=== PATIENT | male | born 1945 | race Caucasian/White ===

== ENCOUNTER 2019-04-18 06:01 | Inpatient (IN) ==
--- NOTE | 2019-04-14 09:23 | PAT Medication Instructions ---
Medication Instructions Date of Service April 14, 2019 Home Medications amlodipine 5 mg PO DAILY ciprofloxacin HCl 250 mg PO Q12H furosemide 40 mg PO QAM glipizide 10 mg PO QAM pravastatin 20 mg PO HS sulfamethoxazole-trimethoprim [Bactrim DS] 1 tab PO Q12H tamsulosin 0.4 mg PO DAILY Continue as directed ciprofloxacin HCl 250 mg PO Q12H sulfamethoxazole-trimethoprim [Bactrim DS] 1 tab PO Q12H DO NOT take the morning of surgery furosemide 40 mg PO QAM glipizide 10 mg PO QAM Take morning of surgery With a small sip of water, OTHERWISE NOTHING TO EAT OR DRINK AFTER MIDNIGHT: amlodipine 5 mg PO DAILY tamsulosin 0.4 mg PO DAILY Take evening before surgery pravastatin 20 mg PO HS Other Notes If you have any questions please call us at [phone] or [phone] or [phone] or [phone]
--- NOTE | 2019-04-14 09:31 | Anesthesiology Consultation ---
Date of Service April 14, 2019 Assessment & Plan (1) Encounter for pre-operative examination: Patient on dialysis MWF. Per surgeon's note, plan is to perform dialysis after surgery on Thursday (surgeon's office arranging). Case discussed with Dr. Espinoza. Surgery clearly urgent due to necrosis of penile tissue. BMP will be drawn AM DOS, and case will proceed as long as electrolytes are reasonable. SEVERE ANEMIA ON PRE-OP LABS. SURGEON MADE AWARE. SURGEON ORDERING TRANSFUSION OF 2 UNITS PRBC FOR AM DOS. OR AND BLOOD BANK MADE AWARE. CHECK BSG AM DOS Chart Review Chart Review: Acceptable Risk for Surgery and Patient seen in Pre Admission Testing Teaching & Discussion Instructed NPO after midnight before surgery, except medications with 15 cc of water. Medication instructions provided according to the PAT guidelines. History Surgery Operation Date: 04/18/19 11:20 Proposed Procedures p Radical Penectomy, Cystoscopy, Perineal Urethrotomy - Jamir Nicholson II, DO Height/Weight Height: 5 ft 7 in Weight: 88.904 kg Allergies Allergy/AdvReac Type Severity Reaction Status Date / Time No Known Allergies Allergy Verified 04/14/19 08:35 Medications Home Medications Medication Instructions Recorded Confirmed Last Taken amlodipine 5 mg PO DAILY 04/14/19 04/14/19 Unknown aspirin [Aspirin Low Dose] 81 mg PO DAILY 04/14/19 04/14/19 Unknown calcium acetate 1,334 mg PO AC 04/14/19 04/14/19 Unknown cholecalciferol (vitamin D3) 2,000 unit PO DAILY 04/14/19 04/14/19 Unknown [Vitamin D3] ciprofloxacin HCl 250 mg PO Q12H 04/14/19 04/14/19 Unknown furosemide 40 mg PO QAM 04/14/19 04/14/19 Unknown glipizide 10 mg PO QAM 04/14/19 04/14/19 Unknown hydroxyzine HCl 10 mg PO Q6H PRN 04/14/19 04/14/19 Unknown pravastatin 20 mg PO HS 04/14/19 04/14/19 Unknown sulfamethoxazole-trimethoprim 1 tab PO Q12H 04/14/19 04/14/19 Unknown [Bactrim DS] tamsulosin 0.4 mg PO DAILY 04/14/19 04/14/19 Unknown vitamin B hzsfyb-P-EI-zinc cit 1 tab PO DAILY 04/14/19 04/14/19 Unknown [Dialyvite 800 with Zinc 15] Past Medical History Medical History AV fistula left upper arm Cancer penile, necrotic. Chronic kidney disease Dr John Ramos ([place], [place]) Diabetes mellitus, type 2 A1C 6.3% 04/14/19 Hearing deficit Hemodialysis patient [facility] -- Dr John Ramos. ; MWF. Hyperlipidemia Hypertension Indwelling Hunter catheter present Leukocytosis Pt currently on 2 antibiotics prescribed by surgeon. Exercise / Class Metabolic Activity II 4-5 Yardwork/Stairs/Walk up hill (Denies CP or SOB with 1 FOS) Past Family History Family History Mother Family history of diabetes mellitus Past Surgical History Surgical History History of cardiac cath 2011 History of colonoscopy History of coronary artery bypass graft x3 vessels @ [facility] 2011 History of tonsillectomy Hx of LASIK S/P arteriovenous (AV) fistula creation left upper arm Past Anesthesia History No Hx of Anesthesia Complications and No Family Hx of Anesthesia Complications History of PONV No Hx of PONV and No Hx of Motion Sickness Social History Smoking Status: Never smoker tobacco type: smokeless tobacco Do You Dip or Chew Tobacco: Yes (1 CAN/3 WEEKS) Hx Alcohol Use: Yes Alcohol type: beer and hard liquor alcohol intake frequency: a few times a month Hx Substance Use: No substance use type: does not use Review of Systems Pt denies any recent chest pain, shortness of breath, palpitations, cough, fever or URI. Physical Exam Vital Signs BP: 119/61 P: 67bpm SPO2: 93% RA T: 98 F R: 22 ENMT Mouth: + poor dentition, + chipped teeth (MANY) and + small oral opening (VERY); no dental restorations and no loose teeth Mallampati Class: IV Neck + limited neck extension Respiratory normal respiratory effort Auscultation: lungs clear to auscultation bilaterally Cardiovascular Rate/Rhythm: regular rate and regular rhythm Heart Sounds: + murmur (II/ SYSTOLIC RSB) Extremities: no edema Testing Laboratory Results 04/14/19 09:50 04/14/19 09:50 Hemoglobin A1c 6.3 % (4.5-5.6) H 04/14/19 09:50 Urine Color Yellow 04/14/19 Unknown Urine Appearance Turbid (Clear) A 04/14/19 Unknown Urine pH >= 9.0 (4.5-7.5) H 04/14/19 Unknown Ur Specific [place] 1.014 (1.000-1.030) 04/14/19 Unknown Urine Protein 3+ (Negative) H 04/14/19 Unknown Urine Glucose (UA) Trace (Negative) H 04/14/19 Unknown Urine Ketones Negative (Negative) 04/14/19 Unknown Urine Nitrite Negative (Negative) 04/14/19 Unknown Ur Leukocyte Esterase 3+ (Negative) H 04/14/19 Unknown Urine WBC (Auto) >30 /hpf (0-5) H 04/14/19 Unknown Urine RBC (Auto) 10-30 /hpf (0-4) H 04/14/19 Unknown U Hyaline Cast (Auto) 1-5 /lpf (0-5) 04/14/19 Unknown U Epithel Cells (Auto) 10-20 /lpf (0-5) H 04/14/19 Unknown Urine Bacteria (Auto) Negative (Negative) 04/14/19 Unknown Blood Type O Negative 04/14/19 09:50 Antibody Screen NEGATIVE 04/14/19 09:50 *Surgeon flagged re: Hgb and possible need for transfusion, and flagged re: elevated WBC count. BUN/Cr consistent with ESRD (pt is on HD) Electrocardiogram Date: 04/14/19 Findings: + NSR @ (68) ST and T wave abnormality, consider lateral ischemia. Prolonged QT. *flattened ST segment in V3-V6, isolated slight T wave inversion in lead I. Chest X-Ray Date: 04/13/19 FINDINGS: Cardiac silhouette is enlarged. Prior median sternotomy. No pneumothorax, large pleural effusion or overt pulmonary edema. Interstitial coarsening of the lung bases with mild subsegmental bibasilar atelectasis. Degenerative changes of the shoulders and spine. Vascular stent graft noted about the left upper extremity. IMPRESSION: Cardiomegaly without acute process.
--- NOTE | 2019-04-14 10:34 | XRay Report ---
XR chest Pre-admission PA/Lat HISTORY: 73 years-old Male pat preoperative exam without acute chest complaints COMPARISON: None available TECHNIQUE: PA and lateral views of the chest FINDINGS: Cardiac silhouette is enlarged. Prior median sternotomy. No pneumothorax, large pleural effusion or o vert pulmonary edema. Interstitial coarsening of the lung bases with mild subsegmental bibasilar atel ectasis. Degenerative changes of the shoulders and spine. Vascular stent graft noted about the left u pper extremity. IMPRESSION: Cardiomegaly without acute process. The above report was generated using voice recognition software. It may contain grammatical, syntax o r spelling errors. Electronically signed by: Manuel Muir M.D. 04/14/2019 10:33 AM
[2019-04-14 11:31] LABS: Appearance Urine Turbid (Clear); Bacteria Urine Automated Negative (Negative); Bilirubin Urine Negative (Negative); Blood Urine 2+ (Negative); Color Urine Yellow; Glucose Urine UA Trace (Negative); Ketones Urine Negative (Negative); Leukocyte Esterase Urine 3+ (Negative); Nitrite Urine Negative (Negative); Specific Gravity Urine 1.014 (1.000-1.030); Urobilinogen Urine Negative (Negative); WBC Urine Automated >30 /hpf (0-5); pH Urine >= 9.0 (4.5-7.5)
[2019-04-14 11:34] LABS: BUN Creatinine Ratio 5.7 (10-20); Calcium 8.6 mg/dl (8.5-10.1); Creatinine Clr Calc Pharmacy 16.6 ml/min; Est GFR (African American) 15.2; Est GFR (Non-African American) 13.1; Potassium 3.7 mmol/L (3.5-5.1)
[2019-04-14 11:42] LABS: Protein Urine 3+ (Negative)
[2019-04-14 11:48] LABS: Hemoglobin 7.4 g/dL (14.0-18.0); Mean Corpuscular Hgb Conc 29.6 g/dL (32-36); Mean Corpuscular Volume 88.3 fL (80-100); Mean Platelet Volume 8.6 fL (7.4-10.4); Platelet Count 301 K/uL (130-400); RDW Coefficient of Variation 18.3 % (11.5-14.5); RDW Standard Deviation 59.8 fL (36.4-46.3); Red Blood Count 2.83 M/uL (4.7-6.1); White Blood Count 25.76 K/uL (4.8-10.8)
[2019-04-14 11:49] LABS: Basophils # (auto) 0.04 K/uL (0-0.2); Basophils % (auto) 0.2 %; Eosinophils # (auto) 0.25 K/uL (0-0.5); Hypochromasia Present; Immature Granulocytes # (auto) 0.13 K/uL (0.00-0.02); Immature Granulocytes % (auto) 0.5 %; Lymphocytes # (auto) 2.99 K/uL (1.2-3.4); Lymphocytes % (auto) 11.6 %; Monocytes # (auto) 1.17 K/uL (0.11-0.59); Monocytes % (auto) 4.5 %; Neutrophils # (auto) 21.18 K/uL (1.4-6.5); Neutrophils % (auto) 82.2 %
[2019-04-14 12:44] LABS: Estimated Average Glucose 134 mg/dl; Hemoglobin A1C 6.3 % (4.5-5.6)
[~2019-04-18 06:01] MED LIST: CEFAZOLIN 2000MG 2,000 MG/15 ML SYR IV SCH; SODIUM CHLORIDE 0.9% 1000ML IV SCH; SODIUM CHLORIDE 0.9% 250 ML IV PRN
--- NOTE | 2019-04-18 06:59 | History & Physical Bridge Note ---
Date of Service April 18, 2019 History & Physical Bridge Note I have examined the patient, reviewed the History & Physical and in the interval since the performance of the History & Physical I have noted the following changes of clinical significance: no changes noted
[2019-04-18 07:04] LABS: BUN Creatinine Ratio 6.1 (10-20); Calcium 9.2 mg/dl (8.5-10.1); Creatinine Clr Calc Pharmacy 12.1 ml/min; Est GFR (African American) 10.2; Est GFR (Non-African American) 8.8; Potassium 3.6 mmol/L (3.5-5.1)
[2019-04-18] MEDS ORDERED: HYDROmorphone INJ 1 MG/ML SYRINGE IV PRN (10:26)
[2019-04-18] MEDS ORDERED: ePHEDrine sulfate 50 MG/ML AMP IV PRN (10:26)
[2019-04-18] MEDS ORDERED: ATROPINE SULFATE 0.1 MG/ML 10ML SYR IV PRN (10:26)
[2019-04-18] MEDS ORDERED: DEXAMETHASONE SOD INJ 4 MG/ML VIAL ONE (10:33)
[2019-04-18] MEDS ORDERED: PROPOFOL IV EMULSION 10 MG/ML 20 ML VIAL IV ONE (10:33)
[2019-04-18] MEDS ORDERED: NEOSTIGMINE METHYLSULFATE 5 MG/5 ML SYR ONE (10:33)
[2019-04-18] MEDS ORDERED: GLYCOPYRROLATE 0.2 MG/ML VIAL ONE (10:33)
[2019-04-18] MEDS ORDERED: MIDAZOLAM HCL 1 MG/ML 2ML VIAL ONE (10:33)
[2019-04-18] MEDS ORDERED: ONDANSETRON INJ 2 MG/ML 2 ML VIAL ONE ×2 (10:33→14:14)
[2019-04-18] MEDS ORDERED: LIDOCAINE HCL 2% 2 ML VIAL/AMP(20MG/ML) INFIL ONE (10:33)
[2019-04-18] MEDS ORDERED: fentaNYL citrate 100 MCG/2 ML VIAL ONE ×3 (10:34→12:13)
[2019-04-18] MEDS ORDERED: BACITRACIN INJ 50,000 UNIT VIAL ONE (11:22)
[2019-04-18] MEDS ORDERED: BUPIVACAINE 0.5 % 5 MG/1 ML MPF 30ML VIAL ONE (11:22)
[2019-04-18] MEDS ORDERED: BACITRACIN OINT 15 GM TUBE ONE (11:22)
[2019-04-18] MEDS ORDERED: SODIUM CHLORIDE 0.9% 1000ML 1,000 ML IV PRN (11:42)
--- NOTE | 2019-04-18 11:42 | Nephrology Consultation ---
Date of Consultation April 18, 2019 Assessment & Plan (1) ESRD (end stage renal disease) on dialysis: -- Will provide heparin free HD today. Orders have been entered into EMR and HD RN notified (2) Anemia: -- Patient transfused one unit PRBC prior to surgery today -- Will provide JOSH w/ HD -- Will order CBC for am (3) Penile malignant neoplasm: -- Penectomy as per Urology History of Present Illness Reason for Consultation: ESRD Attending Physician: Jamir Nicholson, II, DO History of Present Illness Mr. Mahoney is a 73 year old white male who is seen at the request of Dr. Nicholson to provide inpatient HD. Medical records in the EMR were reviewed today and are summarized as follows: Mr. Mahoney's medical history is significant for AODM, HTN, hypercholesterolemia, GERD, BPH and ASCVD. He has been on IHD since 2016. He dialyzes MWF at [facility] [place] in [place] (3hr 15min 2K 2Ca HCO3 37 Qb 450cc/min EDW 89kg). His primary Track Vehicle Repairer is Dr. John Ramos. Mr. Mahoney was recently diagnosed w/ penile cancer. He will undergo elective penectomy today. Nephrology consultation has been requested to provide inpatient HD. Allergies Allergy/AdvReac Type Severity Reaction Status Date / Time No Known Allergies Allergy Verified 04/18/19 06:41 Home Medications Home Medications Medication Instructions Recorded Confirmed Type amlodipine 5 mg PO DAILY 04/14/19 04/18/19 History aspirin [Aspirin Low Dose] 81 mg PO DAILY 04/14/19 04/18/19 History calcium acetate 1,334 mg PO AC 04/14/19 04/18/19 History cholecalciferol (vitamin D3) 2,000 unit PO DAILY 04/14/19 04/18/19 History [Vitamin D3] ciprofloxacin HCl 250 mg PO Q12H 04/14/19 04/18/19 History furosemide 40 mg PO QAM 04/14/19 04/18/19 History glipizide 10 mg PO QAM 04/14/19 04/18/19 History hydroxyzine HCl 10 mg PO Q6H PRN 04/14/19 04/18/19 History pravastatin 20 mg PO HS 04/14/19 04/18/19 History sulfamethoxazole-trimethoprim 1 tab PO Q12H 04/14/19 04/18/19 History [Bactrim DS] tamsulosin 0.4 mg PO DAILY 04/14/19 04/18/19 History vitamin B rwaznh-A-PP-zinc cit 1 tab PO DAILY 04/14/19 04/18/19 History [Dialyvite 800 with Zinc 15] Patient History Medical History AV fistula left upper arm Cancer penile, necrotic. Chronic kidney disease Dr John Ramos ([place], [place]) Diabetes mellitus, type 2 A1C 6.3% 04/14/19 Hearing deficit Hemodialysis patient [facility] -- Dr John Ramos. ; MWF. Hyperlipidemia Hypertension Indwelling Hunter catheter present Leukocytosis Pt currently on 2 antibiotics prescribed by surgeon. Surgical History History of cardiac cath 2011 History of colonoscopy History of coronary artery bypass graft x3 vessels @ [facility] 2011 History of tonsillectomy Hx of LASIK S/P arteriovenous (AV) fistula creation left upper arm Family History Mother Family history of diabetes mellitus Social History Preferred Language: Nepalese Communication Ability: Effective Insurance Coder Required: No Beliefs That Will Affect Care: None Current Living Situation: Alone Other Information That Helps Us Care for You: No Feels Safe at Home: Yes Safety Concerns: Feels Safe At This Time Smoking Status: Never smoker Tobacco Type: smokeless tobacco Do You Dip or Chew Tobacco: Yes (1 CAN/3 WEEKS) Second Hand Exposure: No Tobacco Cessation Education Requested by Patient: No Hx Alcohol Use: Yes Alcohol type: beer and hard liquor Hx Substance Use: No Review of Systems Constitutional: no fever Respiratory: no dyspnea Cardiovascular: no chest pain Gastrointestinal: no abdominal pain, no constipation and no diarrhea/loose stools Genitourinary: no dysuria and no hematuria Physical Exam Constitutional: + frail appearing Eyes: PERRL Neck: trachea midline, no thyromegaly Respiratory: normal respiratory effort, lungs clear to auscultation Cardiovascular: Rate/Rhythm: regular rate and regular rhythm Gastrointestinal (Abdomen): normal bowel sounds, soft, nontender, no hepatosplenomegaly Skin: no rashes, warm and dry (no edema) Neurologic: not confused Results & Data Vital Signs (Past 12 Hours) Vital Signs Temp Pulse Pulse Resp BP BP Pulse Ox 04/18/19 11:27 37.1 C 77 20 149/73 H 96 04/18/19 11:01 36.8 C 80 20 122/76 96 04/18/19 10:46 37 C 76 20 122/67 97 04/18/19 10:26 36.7 C 74 20 128/65 97 04/18/19 10:25 36.7 C 80 20 128/65 97 04/18/19 10:01 37 C 78 18 128/72 96 04/18/19 09:19 36.5 C 81 20 134/71 90 04/18/19 09:00 36.5 C 77 20 94 04/18/19 08:30 36.8 C 77 20 128/91 95 04/18/19 08:16 36.9 C 80 20 118/81 96 04/18/19 08:00 36.8 C 78 20 132/74 91 04/18/19 06:47 37 C 71 18 143/69 H 93 Laboratory Results Laboratory Tests 04/14/19 04/14/19 04/18/19 09:50 Unknown 06:26 WBC 25.76 H Hgb 7.4 L Hct 25.0 L Plt Count 301 Sodium 135 L Potassium 3.6 Chloride 97 L Carbon Dioxide 29 BUN 36 H Creatinine 5.82 H* Glucose 95 Urine Color Yellow Urine Appearance Turbid A Urine pH >= 9.0 H Ur Specific [place] 1.014 Urine Protein 3+ H Urine Glucose (UA) Trace H Urine Ketones Negative Urine Blood 2+ H Urine Nitrite Negative Urine WBC (Auto) >30 H Urine RBC (Auto) 10-30 H U Hyaline Cast (Auto) 1-5
[2019-04-18] MEDS ORDERED: EPOETIN ALFA 10,000 UNITS/ML VIAL IV ONE (12:30)
[2019-04-18] MEDS ORDERED: ePHEDrine sulfate 50 MG/ML SYR ONE (12:43)
--- NOTE | 2019-04-18 15:06 | Post Operative Brief Note ---
Immediate Post Op Note v1 Date of Surgery April 18, 2019 Pre & Post Diagnosis Operation Date: 04/18/19 11:20 Pre-Op Diagnosis: Penile Cancer Post-Op Diagnosis: Penile Cancer Procedure Operation Date: 04/18/19 11:20 Actual Procedures p Radical Penectomy, and Perineal Urethrotomy with urethral repair(Not Applicable) - Jamir Nicholson II, DO Surgeon Jamir Nicholson II, DO Appeals Nurse Terence Krueger MD and ZARINA López Estimated Blood Loss 20 Findings Consistent with Post-Op Diagnosis Necrotic penile cancer to base with significant tumor palpated down the proximal corporal bodies. Specimens Radical Penectomy Frozen urethral margin Drains [place] Drain Anesthesia Type General Complications none Disposition Disposition: Recovery Room Overlapping Procedure I was present for: the critical portions of procedure. I was immediately available: during the entire case. Back up surgeon: used during listed procedure.
--- NOTE | 2019-04-18 15:35 | Operative Report ---
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 Palpable tumor down into proximal corporal bodies. Specimens 1. Total Penectomy 2. Frozen distal urethral margin Drains [place] drain in suprapubic region 16 Fr Silicon العلي at perineal urethrostomy Anesthesia Type General Complications none Disposition Disposition: Recovery Room Indications Patient with biopsy proven squamous cell cancer of the penis with necrosis. Risks and benefits discussed at length. Description of Procedure Patient was consented, brought to the OR, and placed in the dorsal lithotomy position under general anesthesia. She was prepped and draped in the standard sterile fashion and a time out was completed. With the time out completed, the skin was marked to have a wide excision with approx 2 cm of margin. This was most difficult at the base ventrally where the fungated mass had ulcerated down to the scrotal junction. The markings were mad to plan the incision to include some of the scrotal skin for good margin. At this point, The skin over top the pubic bone and around the penis was injected with local anesthetic. Throughout the entire procedure copious irrigation was utilized. The skin was incised with a scalpel. Electrocautery was used to open the the subcutaneous tissues. This was taken down past dartos fascia. With some mobilization, a glove was placed over the mass to help prevent tumor spillage. Prior to opening the skin, the mass was not mobile or exposed enough to place the glove. The superior/dorsal region was dissected down towards the pubic bone. The suspensory ligament was taken with electrocautery. No bleeding or areas of concern. The dorsal vasculature was then ligated with 2-0 silk ties after they were isolated. The dissection was carried down to the region of the posterior pubic bone edge. Circumferentially, dissection was taken freeing the penis from surrounding tissues. The urethra was isolated. Due to location of the ulcerated lesion and concern on palpation due to firmness of tissues around the urethra, a segment of urethra was freed and isolated by a vessel loop. The distal end of the urethra was taken as far as the tissues appeared healthy. The urethra was transected and a distal urethral stump margin was sent for frozen pathologic analysis. Mild and Moderate dysplasia was found in this tissue. No malignancy was discovered. With the short length of amputated urethra and due to patient's habitus, as well as the lack of malignant tissues in the urethra, it was decide to maintain the remaining urethral tissues for creation of the perineal urethrostomy. This was dissected away from the corporal bodies and freed and mobilized. It did appear to reach the perineum where the planned ostomy was going to be created. The corporal bodies were then further dissected and isolated. The tissues appeared more normal without palpable mass or other concerning features toward the base near their proximal end. A 2 cm section of normal feeling tissue was able to be achieved. Sam clamps were placed accross the corporal bodies. These were then transected and the penis fully removed and sent for pathologic analysis after remaining attachments were freed. The corpus cavernosum was then closed by suturing the tunica albuginea with 2-0 and 1-0 PDS suture with horizontal mattress stitches. This closed the tissues complete. The sam clamps were removed and no bleeding was appreciated. 3-0 Vicryl suture was used to ligate some small vessels of the dorsal aspect. The urethral stump was further mobilized to allow placement down to the planned perineum region so a tension free placement could be achieved. At this point, a small approx 2mm urethrotomy was discovered at the dorsal aspect of the urethra as it curved up. This was closed with interrupted 4-0 PDS suture. A 3-0 vicryl suture was used to close tissues over the closure to make a second layer of closure. This was inspected and no issues or bleeding was discovered. Attention was then taken to the perineal urethrostomy creation. An incision was made along the median raphe. This was then dissected through the tissues. A right angle was used to enter, and a mila was used to gently grasp the urethra and place it into the perineal incision. Care was taken to make sure no angulation or other issues developed. The urethra was spatulated at the dorsal aspect. The edges were then sutured with interrupted 3-0 vicryl sutures to create a neomeatus for the urethrostomy. Care was taken to create a wide spatulization of the urethra, tension free, and without angulation. A 16 Fr العلي was placed. All bleeding had been controlled by cautery where necessary. The dartos and subcutaneous tissues were closed with running 2-0 Vicryl suture. This was repeated for the pubic incision. Multiple layers were closed to reduce open space created during dissection. A [place] drain was placed to allow kumar inage. It was secured with a 3-0 nylon suture. The skin was then closed using 2-0 horizontal mattress sutures. Due to the needed resection of scrotal skin, the final closure had an inverted Y configuration. The perineum was closed with 2-0 inturrupted suture. Antibiotic ointment and vaseline gauze were placed around the العلي and on the ostomy. Scrotal support was achieved by a jock strap and fluff bandaging support which was placed after the patient was washed and cleaned. Copious antibiotic irrigation had been used throughout the procedure. Prior to closure final inspection of the area found no bleeding or areas of concern. No tumor or other concerning features. Patient did not have palpable lymph nodes in any area and no concerning lymph nodes were discovered on preoperative imaging. Esthela SRINIVASAN was involved in the entire procedure and was critical for closure, dissection, and retraction. Terence Krueger MD assisted during the major portions of the case including dissection and excision of the penis as well as creation of the ostomy. The patient was cleaned. The drapes removed. All counts were correct x 2 prior to full closure. The patient was aroused from anesthesia and transferred to the pacu in stable condition having tolerated the procedure well without complications. I was present and participated in the entire procedure with assistance as listed above. I attest to the content of the Intraoperative Record and any orders documented therein. Any exceptions are noted below.
[2019-04-18] MEDS ORDERED: PHARMACY GLYCEMIC MGMT CONSULT PRN (15:54)
--- NOTE | 2019-04-18 15:59 | Pharmacy Report ---
Glycemic Control Consultation - Date of Service April 18, 2019 - Scope Scope: Glycemic Pharmacist consulted by Esthela Marshall on 04/18 for glycemic control and to write orders per [facility] inpatient glycemic control protocol - Objective Weight: 90.4 kg Accuchecks BSG (last 24hrs): 04/18/19 04/18/19 04/18/19 06:26 06:49 15:51 Glucose 95 POC Glucose 95 136 H Laboratory Data (last 24hrs): 04/18/19 06:26 Potassium 3.6 Carbon Dioxide 29 Anion Gap 8.0 Creatinine 5.82 H* Est Cr Clr Drug Dosing 12.1 HbA1c: Hemoglobin A1c 6.3 % (4.5-5.6) H 04/14/19 09:50 - Recent Pertinent Medications Outpatient Anti-diabetic Regimen: * glipizide 10 mg Qam * A1c = 6.3 % -not accurate as patient is ESRD on HD Risk Factors for Insulin Resistance: * Steroids: none documented * Recent Surgery: pod 0 - Assessment & Plan Assessment & Plan: ASSESSMENT: * 73 year old now s/p penectomy today. PMHx significant for htn, hld, GERD, BPH, penile cancer * Patient also type 2 diabetic - maintained only on oral agent at home; will utilize novolog SSI postop PLAN FOR INPATIENT GLYCEMIC CONTROL: * Holding outpatient oral diabetes medications * Basal insulin - hold (no steroid received in OR) * Bolus insulin * NovoLog per scale ACHS or Q6hrs while NPO * Goal Range: Low 120 mg/dL - High 160 mg/dL * Correction Factor: 25 mg/dL/unit * Nutritional / Prandial insulin per carb ratio of 1 unit per 9 grams CHO consumed * Please note that the plan above was derived based on current level of insulin resistance and hospital stress. These recommendations are appropriate for inpatient admission only. Plan of care upon discharge will need to be reassessed to avoid potential outpatient hypo/hyperglycemia. Thank you.
[2019-04-18] MEDS ORDERED: GLUCAGON FOR INJ 1 MG VIAL IM PRN (16:00)
[2019-04-18] MEDS ORDERED: GLUCOSE 40% GEL 15 GM TUBE PO PRN (16:00)
[2019-04-18] MEDS ORDERED: CARBOHYDRATES FOR HYPOGLYCEMIA PO PRN (16:00)
[2019-04-18] MEDS ORDERED: GLUCOSE 10 TABS/TUBE PO PRN (16:00)
[2019-04-18] MEDS ORDERED: DEXTROSE 50% 50 ML SYRINGE IV PRN (16:00)
[2019-04-18] MEDS ORDERED: OXYCODONE HCL IR 5 MG TAB (IMMEDIATE RELEASE) PO PRN ×2 (16:31)
[2019-04-18] MEDS ORDERED: ACETAMINOPHEN 1,000 MG/100 ML VIAL IV PRN (16:31)
[2019-04-18] MEDS ORDERED: ONDANSETRON INJ 2 MG/ML 2 ML VIAL IV PRN (16:31)
[2019-04-18] MEDS ORDERED: MoRPHine SULFATE 4 MG/ML 1 ML CARP\\VIAL IV PRN (16:31)
[2019-04-18 17:08] LABS: Hematocrit (blood only) 29.5 % (42-52); Hemoglobin 9.1 g/dL (14.0-18.0); Mean Corpuscular Volume 86.3 fL (80-100); Mean Platelet Volume 8.7 fL (7.4-10.4); Platelet Count 287 K/uL (130-400); RDW Coefficient of Variation 17.4 % (11.5-14.5); RDW Standard Deviation 53.9 fL (36.4-46.3); Red Blood Count 3.42 M/uL (4.7-6.1); White Blood Count 27.31 K/uL (4.8-10.8)
[2019-04-18 17:36] LABS: BUN Creatinine Ratio 6.3 (10-20); Calcium 8.9 mg/dl (8.5-10.1); Creatinine Clr Calc Pharmacy 11.6 ml/min; Est GFR (African American) 9.7; Est GFR (Non-African American) 8.4; Potassium 3.7 mmol/L (3.5-5.1)
[2019-04-18 17:51] LABS: Basophils # (auto) 0.02 K/uL (0-0.2); Basophils % (auto) 0.1 %; Eosinophils # (auto) 0.02 K/uL (0-0.5); Eosinophils % (auto) 0.1 %; Immature Granulocytes # (auto) 0.17 K/uL (0.00-0.02); Immature Granulocytes % (auto) 0.6 %; Lymphocytes # (auto) 0.92 K/uL (1.2-3.4); Lymphocytes % (auto) 3.4 %; Mean Corpuscular Hgb Conc 30.8 g/dL (32-36); Monocytes # (auto) 0.31 K/uL (0.11-0.59); Monocytes % (auto) 1.1 %; Neutrophils # (auto) 25.87 K/uL (1.4-6.5); Neutrophils % (auto) 94.7 %
[2019-04-18] MEDS: LACTATED RINGER'S 1,000 ML IV SCH (17:59)
[2019-04-18] MEDS: INSULIN ASPART 100 UNITS/ML 3 ML PEN SC SCH ×2 (18:39→21:48)
--- NOTE | 2019-04-18 19:40 | Anesthesiology Progress Note ---
Date of Service April 18, 2019 Anesthesia Post Procedure Vital Signs Vital Signs: Temp Pulse Pulse Pulse Resp BP BP 04/18/19 19:22 36.3 C L 76 16 120/61 04/18/19 18:15 36.2 C L 77 16 129/65 04/18/19 17:22 36.3 C L 75 17 126/59 L 04/18/19 16:45 36.2 C L 72 16 120/67 04/18/19 16:02 36.8 C 04/18/19 16:00 68 14 128/65 04/18/19 15:55 68 16 119/64 04/18/19 15:50 68 17 123/61 04/18/19 15:45 68 19 125/72 04/18/19 15:40 68 15 04/18/19 15:35 68 14 131/65 04/18/19 15:30 68 14 131/61 04/18/19 15:26 68 13 135/66 04/18/19 15:25 72 14 04/18/19 15:20 67 23 130/64 04/18/19 15:18 68 14 04/18/19 15:17 36.8 C 68 12 132/63 04/18/19 11:27 37.1 C 77 20 149/73 H 04/18/19 11:01 36.8 C 80 20 122/76 04/18/19 10:46 37 C 76 20 122/67 04/18/19 10:26 36.7 C 74 20 128/65 04/18/19 10:25 36.7 C 80 20 128/65 04/18/19 10:01 37 C 78 18 128/72 04/18/19 09:19 36.5 C 81 20 134/71 04/18/19 09:00 36.5 C 77 20 04/18/19 08:30 36.8 C 77 20 128/91 04/18/19 08:16 36.9 C 80 20 118/81 04/18/19 08:00 36.8 C 78 20 132/74 04/18/19 06:47 37 C 71 18 143/69 H Pulse Ox 04/18/19 19:22 92 04/18/19 18:15 97 04/18/19 17:22 98 04/18/19 16:45 96 04/18/19 16:02 96 04/18/19 16:00 96 04/18/19 15:55 95 04/18/19 15:50 95 04/18/19 15:45 96 04/18/19 15:40 94 04/18/19 15:35 96 04/18/19 15:30 99 04/18/19 15:26 99 04/18/19 15:25 98 04/18/19 15:20 99 04/18/19 15:18 99 04/18/19 15:17 97 04/18/19 11:27 96 04/18/19 11:01 96 04/18/19 10:46 97 04/18/19 10:26 97 04/18/19 10:25 97 04/18/19 10:01 96 04/18/19 09:19 90 04/18/19 09:00 94 04/18/19 08:30 95 04/18/19 08:16 96 04/18/19 08:00 91 04/18/19 06:47 93 Pain Intensity Penis: Pain Intensity: 0 Transfer of Care Handoff Completed per policy Notes Mental Status: alert / awake / arousable Patient Amnestic to Procedure: Yes Nausea / Vomiting: adequately controlled Pain: adequately controlled Airway Patency, RR, SpO2: stable & adequate BP & HR: stable & adequate Hydration State: stable & adequate Anesthetic Complications: no major complications apparent
[2019-04-18] MEDS: CEFAZOLIN 2000MG 2,000 MG/15 ML SYR IV SCH (20:23)
[2019-04-18] MEDS: FAMOTIDINE 20 MG in SYRINGE 3 ML IV SCH (20:23)
[2019-04-18] MEDS: PRAVASTATIN SOD 20 MG TAB PO SCH (20:24)
[2019-04-18] MEDS: DOCUSATE SODIUM 100 MG CAP PO SCH (20:27)
--- NOTE | 2019-04-18 21:26 | History & Physical Report ---
Date of Service April 18, 2019 Assessment & Plan (1) ESRD (end stage renal disease) on dialysis: Ambrosio laws is a 73-year-old male with a past medical history of CKD on hemodialysis, type 2 diabetes mellitus, hypertension, and hyperlipidemia who was admitted to [facility] for a penectomy 2/2 malignant neoplasm. We have been consulted for postoperative medical management. Type 2 diabetes mellitus Hemoglobin A1c 6.3%, on glipizide 10 mg daily PRINCIPAL JAVA DEVELOPER SBG 95 on admit, [id number] postop, 261 at 2133 SSI correction 25, carb ratio 1:9. Glucose checks AC at bedtime Chronic kidney disease on dialysis Bilateral pedal and trace hand edema present on exam Patient feels clinically overloaded. Trace pulmonary crackles. Normal dialysis schedule MW Nephrology consulted for inpatient dialysis Will be receiving dialysis tonight 120 cc UOP Continue Lasix 40 mg every morning Postop hemoglobin 9.1, stable. preop 7.4+1u pRBC Hypertension Continue amlodipine 5 mg p.o. daily Normotensive at time of visit Hyperlipidemia Continue PRINCIPAL JAVA DEVELOPER pravastatin 20 mg p.o. at bedtime Given his history of CABG would benefit from at least a moderate dose/potency statin and beta-silva. Patient is a poor historian and is unable to clarify if he has been on these medications before, or if they were stopped for a particular reason.. Unless contraindicated recommend changing to atorvastatin 40 mg daily and adding low-dose metoprolol as outpatient. 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 Continue pain management per primary team Hunter draining clear yellow urine with some tinged blood Surgical dressing C/D/I. Management per primary team DVT prophylaxis: Heparin 5000 units subcu every [address] CODE STATUS: Full code (2) Anemia: (3) Penile malignant neoplasm: (4) Type 2 diabetes mellitus: (5) Hypertension: (6) Hyperlipidemia: History of Present Illness Chief Complaint: Post op medical management Primary Care Provider: NO PCP Ambrosio reports he feels "okay "at time of exam. He is a poor historian. He reports he is in the hospital because he needed surgery. He is in 4/10 pain in his low groin, but feels this is "okay " He denies any fever, chills, sweats. No difficulty breathing or shortness of breath. No chest pain, chest pressure, palpitations. He feels "puffy "like he needs dialysis. He reports he gets dialysis Thursday for "a long time ". He denies lightheadedness, dizziness, or feeling like he is going to pass out. No other questions or concerns at time of visit. Medications: He is not able to name his prior to admission medications. He reports that he "checked my list "when they came in and they should be accurate SHX: History of CABG x3 in 2012, L AV Fistula formation MedHx: T2DM, HLD, HTN, penile cancer, CKD on HD FHX: DM in his parents, HTN in his parents. Social: Lives alone in [facility] Occasional beer/liquor use Uses dip tobacco Code Status: Full Code. Confirmed with pt. Allergies Allergy/AdvReac Type Severity Reaction Status Date / Time No Known Allergies Allergy Verified 04/18/19 06:41 Home Medications Home Medications Medication Instructions Recorded Confirmed Type amlodipine 5 mg PO DAILY 04/14/19 04/18/19 History aspirin [Aspirin Low Dose] 81 mg PO DAILY 04/14/19 04/18/19 History calcium acetate 1,334 mg PO AC 04/14/19 04/18/19 History cholecalciferol (vitamin D3) 2,000 unit PO DAILY 04/14/19 04/18/19 History [Vitamin D3] ciprofloxacin HCl 250 mg PO Q12H 04/14/19 04/18/19 History furosemide 40 mg PO QAM 04/14/19 04/18/19 History glipizide 10 mg PO QAM 04/14/19 04/18/19 History hydroxyzine HCl 10 mg PO Q6H PRN 04/14/19 04/18/19 History pravastatin 20 mg PO HS 04/14/19 04/18/19 History sulfamethoxazole-trimethoprim 1 tab PO Q12H 04/14/19 04/18/19 History [Bactrim DS] tamsulosin 0.4 mg PO DAILY 04/14/19 04/18/19 History vitamin B [id number] cit 1 tab PO DAILY 04/14/19 04/18/19 History [Dialyvite 800 with Zinc 15] Past Med/Surg History Medical History AV fistula left upper arm Cancer penile, necrotic. Chronic kidney disease Dr John Ramos ([place], [place]) Diabetes mellitus, type 2 A1C 6.3% 04/14/19 Hearing deficit Hemodialysis patient [facility] -- Dr John Ramos. ; MWF. Hyperlipidemia Hypertension Indwelling Hunter catheter present Leukocytosis Pt currently on 2 antibiotics prescribed by surgeon. Surgical History History of cardiac cath 2011 History of colonoscopy History of coronary artery bypass graft x3 vessels @ [facility] 2011 History of tonsillectomy Hx of LASIK S/P arteriovenous (AV) fistula creation left upper arm Family History Mother Family history of diabetes mellitus Social History Preferred Language: Luxembourgish Communication Ability: Effective Ukrainian Folk Arts Instructor Required: No Beliefs That Will Affect Care: None Current Living Situation: Alone Other Information That Helps Us Care for You: No Feels Safe at Home: Yes Safety Concerns: Feels Safe At This Time Smoking Status: Never smoker Tobacco Type: smokeless tobacco Do You Dip or Chew Tobacco: Yes (1 CAN/3 WEEKS) Second Hand Exposure: No Tobacco Cessation Education Requested by Patient: No Hx Alcohol Use: Yes Alcohol type: beer and hard liquor Hx Substance Use: No Review of Systems Review of Systems: Constitutional: Denies fever, chills. Endorses global fatigue for several weeks. Eyes: Denies Double vision, vision change. ENT: Denies sore throat. Denies tooth/mouth pain, endorses poor dentition. Cardiovascular: Denies Chest pain, chest pressure, palpitations Respiratory: Denies shortness of breath, cough, sputum production, difficulty breathing Gastrointestinal: Endorses low abdominal pain as noted in HPI. Denies nausea/vomiting/constipation/diarrhea. Genitourinary: Is not able to feel a sense of urination, catheter in place. Denies pain at catheter site. Musculoskeletal: Endorses global fatigue for several weeks, denies focal weakness/focal joint aches/pain. Integumentary:Denies new rash, lesions, bruising Neurological: Denies headache, numbness, tingling, focal weakness at time of visit Physical Exam Physical Exam: General: A&Ox3. NAD. Cooperative. Somnolent. HEENT: Atraumatic, normocephalic. Poor dentition with several missing teeth. Pulm: Soft crackles in the deep dependent lobes bilaterally. No wheeze estela reciated.. Symmetrical chest rise. No increase work of breathing. No respiratory distress. Cardiac: Soft ii/vi systolic murmer. Regular rate and rhythm. Radial pulses intact and symmetrical. Abdominal: Softly distended, nontender in upper quadrants, mild infraumbilical tenderness. BS present. Extremity: 1+ pitting edema to the mid calf present bilaterally. Trace edema of the hands present. Results & Data Vital Signs (Past 12 Hours) Vital Signs Temp Pulse Pulse Pulse Resp BP BP 04/18/19 19:22 36.3 C L 76 16 120/61 04/18/19 18:15 36.2 C L 77 16 129/65 04/18/19 17:22 36.3 C L 75 17 126/59 L 04/18/19 16:45 36.2 C L 72 16 120/67 04/18/19 16:02 36.8 C 04/18/19 16:00 68 14 128/65 04/18/19 15:55 68 16 119/64 04/18/19 15:50 68 17 123/61 04/18/19 15:45 68 19 125/72 04/18/19 15:40 68 15 04/18/19 15:35 68 14 131/65 04/18/19 15:30 68 14 131/61 04/18/19 15:26 68 13 135/66 04/18/19 15:25 72 14 04/18/19 15:20 67 23 130/64 04/18/19 15:18 68 14 04/18/19 15:17 36.8 C 68 12 132/63 04/18/19 11:27 37.1 C 77 20 149/73 H 04/18/19 11:01 36.8 C 80 20 122/76 04/18/19 10:46 37 C 76 20 122/67 04/18/19 10:26 36.7 C 74 20 128/65 04/18/19 10:25 36.7 C 80 20 128/65 04/18/19 10:01 37 C 78 18 128/72 Pulse Ox 04/18/19 19:22 92 04/18/19 18:15 97 07/15/19 17:22 98 04/18/19 16:45 96 04/18/19 16:02 96 04/18/19 16:00 96 04/18/19 15:55 95 04/18/19 15:50 95 04/18/19 15:45 96 04/18/19 15:40 94 04/18/19 15:35 96 04/18/19 15:30 99 04/18/19 15:26 99 04/18/19 15:25 98 04/18/19 15:20 99 04/18/19 15:18 99 04/18/19 15:17 97 04/18/19 11:27 96 04/18/19 11:01 96 04/18/19 10:46 97 04/18/19 10:26 97 04/18/19 10:25 97 04/18/19 10:01 96 Supervising Physician Co-Signing Physician Notes Pt seen/examined following resident MD Abby Miller. Recommendations reviewed with resident. 73 y/o M Hx ESRD, DM II, HTN, HLD, penile CA admitted for penectomy. The pt is recovering well in the post-op period. Denies CP, SOB, nausea, vomiting, fevers or excessive pain at the surgical site, however, he may be an unreliable historian as he is disoriented. He is scheduled for dialysis this evening. OE AAO x 1 S1,2 +M CTAB NT, ND Bruits auscultated over R arm No CC . + BL edema Disoriented without focal deficits The genital area is bandaged. A cath is in place - urine id mostly yellow P: For Dialysis this ann marie Pt is on Heparin prophylaxis SS for DM Cont Amlodipine, Simvastatin Surgical site management per urology PG Care Time/CCT Total # of Minutes Spent Total Time Spent with Patient: Total time spent is greater than 50% in coordination of care (as documented) at patient's floor/unit and/or counseling patient:
[2019-04-18] MEDS: HEPARIN SOD 5,000 UNIT/0.5 ML VIAL SQ SCH (21:46)
[2019-04-19] MEDS ORDERED: INSULIN ASPART 100 UNITS/ML 3 ML PEN SC SCH
[2019-04-19] MEDS: CEFAZOLIN 2000MG 2,000 MG/15 ML SYR IV SCH ×2 (04:29→13:12)
[2019-04-19] MEDS: LACTATED RINGER'S 1,000 ML IV SCH ×3 (07:52→17:35)
[2019-04-19 07:59] LABS: Basophils # (auto) 0.01 K/uL (0-0.2); Basophils % (auto) 0.1 %; Hemoglobin 8.8 g/dL (14.0-18.0); Immature Granulocytes # (auto) 0.12 K/uL (0.00-0.02); Immature Granulocytes % (auto) 0.6 %; Lymphocytes # (auto) 2.06 K/uL (1.2-3.4); Lymphocytes % (auto) 10.3 %; Mean Corpuscular Hgb Conc 30.3 g/dL (32-36); Mean Corpuscular Volume 87.1 fL (80-100); Mean Platelet Volume 8.6 fL (7.4-10.4); Monocytes # (auto) 0.95 K/uL (0.11-0.59); Monocytes % (auto) 4.8 %; Neutrophils % (auto) 84.2 %; Platelet Count 263 K/uL (130-400); RDW Coefficient of Variation 17.4 % (11.5-14.5); RDW Standard Deviation 54.9 fL (36.4-46.3); Red Blood Count 3.33 M/uL (4.7-6.1); White Blood Count 19.94 K/uL (4.8-10.8)
[2019-04-19 08:35] LABS: BUN Creatinine Ratio 5.4 (10-20); Calcium 8.4 mg/dl (8.5-10.1); Creatinine Clr Calc Pharmacy 18.4 ml/min; Est GFR (African American) 17.4; Potassium 3.7 mmol/L (3.5-5.1)
[2019-04-19] MEDS: INSULIN ASPART 100 UNITS/ML 3 ML PEN SC SCH ×5 (08:58→21:13)
[2019-04-19] MEDS: HEPARIN SOD 5,000 UNIT/0.5 ML VIAL SQ SCH ×2 (08:59→21:10)
[2019-04-19] MEDS: AMLODIPINE BESYLATE 5 MG TAB PO SCH (09:00)
[2019-04-19] MEDS: FAMOTIDINE 20 MG in SYRINGE 3 ML IV SCH ×2 (09:08→21:14)
[2019-04-19] MEDS: DOCUSATE SODIUM 100 MG CAP PO SCH ×2 (09:08→21:10)
--- NOTE | 2019-04-19 10:21 | Nephrology Progress Note ---
Date of Service April 19, 2019 Assessment & Plan (1) ESRD (end stage renal disease) on dialysis: -- Volume status and electrolyte balance are acceptable. No acute indication for HD at this time. -- Will schedule next HD for am (2) Anemia: -- Will provide JOSH w/ HD (3) Penile malignant neoplasm: -- Penectomy 04/18/19 Subjective Mr. Mahoney was seen & examined in his hospital room this morning. He was dialyzed yesterday without complication. This morning he is breathing comfortably on RA flat in bed. He voices no new medical concerns at this time Review of Systems Constitutional: no fever Respiratory: no dyspnea Cardiovascular: no chest pain Gastrointestinal: no abdominal pain and no diarrhea/loose stools Genitourinary: + genital pain (related to surgery) Physical Exam Constitutional: + frail appearing Eyes: PERRL Neck: trachea midline, no thyromegaly Respiratory: normal respiratory effort, lungs clear to auscultation Cardiovascular: Rate/Rhythm: regular rate and regular rhythm Gastrointestinal (Abdomen): normal bowel sounds, soft, nontender, no hepatosplenomegaly Skin: no rashes, warm and dry (no edema) Neurologic: not confused Results & Data Vital Signs (Past 12 Hours) Vital Signs Temp Pulse Pulse Pulse Resp BP BP 04/19/19 07:40 36.6 C 80 18 134/74 04/19/19 03:11 36.3 C L 75 14 137/64 04/19/19 02:10 36.2 C L 83 14 139/71 04/19/19 01:45 36.6 C 70 141/77 H 04/19/19 01:40 70 141/77 H 04/19/19 01:20 68 130/77 04/19/19 01:00 57 L 147/76 H 04/19/19 00:40 68 122/77 04/19/19 00:20 70 130/77 04/19/19 00:00 70 134/74 04/18/19 23:40 71 140/77 04/18/19 23:20 72 132/80 04/18/19 23:00 71 127/78 04/18/19 22:40 71 124/76 Pulse Ox 04/19/19 07:40 94 04/19/19 03:11 94 04/19/19 02:10 96 04/19/19 01:45 04/19/19 01:40 04/19/19 01:20 04/19/19 01:00 04/19/19 00:40 04/19/19 00:20 04/19/19 00:00 04/18/19 23:40 04/18/19 23:20 04/18/19 23:00 04/18/19 22:40 Laboratory Results Laboratory Tests 04/19/19 04/19/19 07:25 07:25 WBC 19.94 H Hgb 8.8 L Hct 29.0 L Plt Count 263 Sodium 133 L Potassium 3.7 Chloride 97 L Carbon Dioxide 28 BUN 20 H Creatinine 3.76 H D Glucose 154 H Calcium 8.4 L
--- NOTE | 2019-04-19 12:18 | Urology Progress Note ---
Date of Service April 19, 2019 Assessment & Plan (1) Penile malignant neoplasm: POD #1 s/p radical penectomy. Patient feeling "okay" Will advance diet. Surgical dressing changed and replaced today - will likely transition to shower tomorrow. Will consult stoma nurse for recommendations of prison urethrostomy management. Maintain Suma until outpatient follow up. Teaching patient about care of his surgical wounds was not successful today, he was not able to verbalize understanding. Patient lives alone with very limited access to family/support/transportation and he voices concerns about transportation to follow up appointment. Will consult case management for consideration of home nursing vs. rehab for short term management, this patient will also need assistance transitioning back to primary urologist in [place]. Will transition to PO antibiotic coverage of Bactrim and Ceftin. Subjective 73 YO male POD #1 s/p radical penectomy. Patient reports feeling "okay" this morning. Requests advance in diet, has been hungry. No nausea/vomiting. Pain well controlled. Hunter not bothersome. Has passed flatus, no BM yet. Hospitalist and Nephrology notes appreciated. Review of Systems Review of Systems: All systems reviewed & are unremarkable except as noted in HPI & below Physical Exam Physical Exam: NAD. Resp effort normal. No JVD. Abd soft/nontender. A&O x self (patient baseline), cooperative, appropriate affect. : suprapubic incision well approximated without evidence of infection; diffuse mild swelling throughout scrotum; urethrostomy appears pink, moist, well approximated, Hunter in place draining clear yellow urine. Dressing changed. Results & Data Vital Signs (Past 12 Hours) Vital Signs Temp Pulse Pulse Pulse Resp BP BP 04/19/19 07:40 36.6 C 80 18 134/74 04/19/19 03:11 36.3 C L 75 14 137/64 04/19/19 02:10 36.2 C L 83 14 139/71 04/19/19 01:45 36.6 C 70 141/77 H 04/19/19 01:40 70 141/77 H 04/19/19 01:20 68 130/77 04/19/19 01:00 57 L 147/76 H 04/19/19 00:40 68 122/77 04/19/19 00:20 70 130/77 Pulse Ox 04/19/19 07:40 94 04/19/19 03:11 94 04/19/19 02:10 96 04/19/19 01:45 04/19/19 01:40 04/19/19 01:20 04/19/19 01:00 04/19/19 00:40 04/19/19 00:20
--- NOTE | 2019-04-19 17:46 | Hospitalist Progress Note ---
Date of Service April 19, 2019 Assessment & Plan (1) ESRD (end stage renal disease) on dialysis: This pt is a 73-year-old male with a past medical history of ESRD on hemodialysis, CAD s/p CABG, type 2 diabetes mellitus, hypertension, and hyperlipidemia who was admitted to [facility] for a penectomy 2/2 malignant neoplasm. We have been consulted for postoperative medical management. ESRD on HD Normal dialysis schedule MWF Nephrology consulted for inpatient dialysis Does make urine, has Hunter in place his lasix is on hold (2) Anemia: Hgb preop 7.4+1u pRBC and now up to 8.8 Has anemia of CKD -follow CBC< transfuse for Hgb < 7.5 -epogen as per Nephro (3) Penile malignant neoplasm: now s/p penectomy Apparent preop scans negative for metastatic disease continue pain control Hunter draining clear yellow urine Surgical dressing C/D/I. Management per primary team -on prophylactic Bactrim and Cefuroxime (4) Type 2 diabetes mellitus: Type 2 diabetes mellitus Hemoglobin A1c 6.3%, on glipizide 10 mg daily CHECK SERVICES CLERK Pharmacy managing (5) Hypertension: BPs controlled Continue amlodipine 5 mg p.o. daily (6) Hyperlipidemia: Continue pravastatin 20 mg p.o. at bedtime Given his history of CABG would benefit from at least a moderate dose/potency statin and beta-silva. Patient is a poor historian and is unable to clarify if he has been on these medications before, or if they were stopped for a particular reason.. Unless contraindicated recommend changing to atorvastatin 40 mg daily and adding low-dose metoprolol as outpatient. Defer to PCP or Cardiology (7) CAD (coronary artery disease), tanana coronary artery: s/p CABG Cardiac cath in 2014 reviewed and had patent grafts, mild LV dysfunction/Chronic systolic CHF, and moderate MR no signs/symptoms of ACS or volume overload-fluid status to be managed with HD ECG with some lateral ST/TW changes, no old ECG for comparison No chest pain -continue statin and consider high intensity as above -would restart ASA when safe from surgical standpoint (8) DVT prophylaxis: Heparin SQ Dispo-medically stable, Pharmacy managing glucose, Nephro managing ESRD/HD Hospitalist Service will sign off at this time Please feel free to reconsult if any acute or new issues arise. Subjective Has pain in his bottom. Denies CP or SOB, no N/V, is tolerating po. Denies abd pain. Is ambulating. Review of Systems Review of Systems: All systems reviewed & are unremarkable except as noted in HPI & below Physical Exam Constitutional: WD/WN, vitals as above Eyes: PERRL, conjunctivae normal, anicteric sclerae ENMT: external ear and nose normal, oropharynx normal Neck: trachea midline, no thyromegaly Respiratory: normal respiratory effort, lungs clear to auscultation Cardiovascular: RRR, no murmur, no edema Gastrointestinal (Abdomen): normal bowel sounds, soft, nontender, no hepatosplenomegaly did not remove dressing Musculoskeletal: Extremities: extremities normal to inspection; no cyanosis and no clubbing Skin: no rashes, warm and dry Neurologic: moves all extremities and awake; no focal motor deficits Psychiatric: A+Ox3, euthymic affect Genitourinary: Hunter in place with clear yellow urine Results & Data Vital Signs (Past 12 Hours) Vital Signs Temp Pulse Resp BP Pulse Ox 04/19/19 15:30 36.5 C 68 16 125/65 98 04/19/19 12:53 36.4 C L 69 18 155/72 H 98 04/19/19 07:40 36.6 C 80 18 134/74 94 Laboratory Results 04/19/19 04/19/19 04/19/19 Range/Units 20:39 17:21 14:02 WBC (4.8-10.8) K/uL RBC (4.7-6.1) M/uL Hgb (14.0-18.0) g/dL Hct (42-52) % MCV (80-100) fL MCH (25-34) pg MCHC (32-36) g/dL RDW Std Deviation (36.4-46.3) fL RDW Coeff of Josue (11.5-14.5) % Plt Count (130-400) K/uL MPV (7.4-10.4) fL Immature Gran % (Auto) % Neut % (Auto) % Lymph % (Auto) % Vermilion % (Auto) % Eos % (Auto) % Baso % (Auto) % Immature Gran # (Auto) (0.00-0.02) K/uL Neut # (Auto) (1.4-6.5) K/uL Lymph # (Auto) (1.2-3.4) K/uL Vermilion # (Auto) (0.11-0.59) K/uL Eos # (Auto) (0-0.5) K/uL Baso # (Auto) (0-0.2) K/uL Sodium (136-145) mmol/L Potassium (3.5-5.1) mmol/L Chloride (98-107) mmol/L Carbon Dioxide (21-32) mmol/L Anion Gap (3-11) BUN (7-18) mg/dl Creatinine (0.6-1.4) mg/dl Est Cr Clr Drug Dosing ml/min Est GFR ( Amer) Est GFR (Non-Af Amer) BUN/Creatinine Ratio (10-20) Glucose (70-99) mg/dl POC Glucose 160 H 172 H 135 H (70-99) Calcium (8.5-10.1) mg/dl 04/19/19 04/19/19 04/19/19 Range/Units 12:25 08:10 07:25 WBC (4.8-10.8) K/uL RBC (4.7-6.1) M/uL Hgb (14.0-18.0) g/dL Hct (42-52) % MCV (80-100) fL MCH (25-34) pg MCHC (32-36) g/dL RDW Std Deviation (36.4-46.3) fL RDW Coeff of Josue (11.5-14.5) % Plt Count (130-400) K/uL MPV (7.4-10.4) fL Immature Gran % (Auto) % Neut % (Auto) % Lymph % (Auto) % Vermilion % (Auto) % Eos % (Auto) % Baso % (Auto) % Immature Gran # (Auto) (0.00-0.02) K/uL Neut # (Auto) (1.4-6.5) K/uL Lymph # (Auto) (1.2-3.4) K/uL Vermilion # (Auto) (0.11-0.59) K/uL Eos # (Auto) (0-0.5) K/uL Baso # (Auto) (0-0.2) K/uL Sodium 133 L (136-145) mmol/L Potassium 3.7 (3.5-5.1) mmol/L Chloride 97 L (98-107) mmol/L Carbon Dioxide 28 (21-32) mmol/L Anion Gap 8.0 (3-11) BUN 20 H (7-18) mg/dl Creatinine 3.76 H D (0.6-1.4) mg/dl Est Cr Clr Drug Dosing 18.4 ml/min Est GFR ( Amer) 17.4 Est GFR (Non-Af Amer) 15.0 BUN/Creatinine Ratio 5.4 L (10-20) Glucose 154 H (70-99) mg/dl POC Glucose 124 H 161 H (70-99) Calcium 8.4 L (8.5-10.1) mg/dl 04/19/19 Range/Units 07:25 WBC 19.94 H (4.8-10.8) K/uL RBC 3.33 L (4.7-6.1) M/uL Hgb 8.8 L (14.0-18.0) g/dL Hct 29.0 L (42-52) % MCV 87.1 (80-100) fL MCH 26.4 (25-34) pg MCHC 30.3 L (32-36) g/dL RDW Std Deviation 54.9 H (36.4-46.3) fL RDW Coeff of Josue 17.4 H (11.5-14.5) % Plt Count 263 (130-400) K/uL MPV 8.6 (7.4-10.4) fL Immature Gran % (Auto) 0.6 % Neut % (Auto) 84.2 % Lymph % (Auto) 10.3 % Vermilion % (Auto) 4.8 % Eos % (Auto) 0.0 % Baso % (Auto) 0.1 % Immature Gran # (Auto) 0.12 H (0.00-0.02) K/uL Neut # (Auto) 16.80 H (1.4-6.5) K/uL Lymph # (Auto) 2.06 (1.2-3.4) K/uL Vermilion # (Auto) 0.95 H (0.11-0.59) K/uL Eos # (Auto) 0.00 (0-0.5) K/uL Baso # (Auto) 0.01 (0-0.2) K/uL Sodium (136-145) mmol/L Potassium (3.5-5.1) mmol/L Chloride (98-107) mmol/L Carbon Dioxide (21-32) mmol/L Anion Gap (3-11) BUN (7-18) mg/dl Creatinine (0.6-1.4) mg/dl Est Cr Clr Drug Dosing ml/min Est GFR ( Amer) Est GFR (Non-Af Amer) BUN/Creatinine Ratio (10-20) Glucose (70-99) mg/dl POC Glucose (70-99) Calcium (8.5-10.1) mg/dl PG Care Time/CCT Total # of Minutes Spent Total Time Spent with Patient: Total time spent is greater than 50% in coordination of care (as documented) at patient's floor/unit and/or counseling patient:
[2019-04-19] MEDS ORDERED: SULFAMETHOXAZOLE/TRIMETHOPRIM DS 800/160MG TAB PO SCH (21:00)
[2019-04-19] MEDS: SULFA/TRIMETH 400/80MG TAB PO SCH (21:10)
[2019-04-19] MEDS: PRAVASTATIN SOD 20 MG TAB PO SCH (21:10)
[2019-04-19] MEDS: cefUROXime axetil 500 MG TAB PO SCH (21:10)
[2019-04-20] MEDS ORDERED: SODIUM CHLORIDE 0.9% 1000ML 1,000 ML IV PRN (07:00)
[2019-04-20] MEDS ORDERED: EPOETIN ALFA 10,000 UNITS/ML VIAL IV SCH (07:00)
[2019-04-20 08:18] LABS: Basophils # (auto) 0.02 K/uL (0-0.2); Basophils % (auto) 0.1 %; Eosinophils # (auto) 0.26 K/uL (0-0.5); Eosinophils % (auto) 1.8 %; Hematocrit (blood only) 29.5 % (42-52); Immature Granulocytes % (auto) 1.4 %; Lymphocytes # (auto) 2.99 K/uL (1.2-3.4); Lymphocytes % (auto) 20.3 %; Mean Corpuscular Hgb Conc 30.5 g/dL (32-36); Mean Platelet Volume 8.4 fL (7.4-10.4); Monocytes # (auto) 1.06 K/uL (0.11-0.59); Monocytes % (auto) 7.2 %; Neutrophils # (auto) 10.18 K/uL (1.4-6.5); Neutrophils % (auto) 69.2 %; Platelet Count 272 K/uL (130-400); RDW Coefficient of Variation 17.2 % (11.5-14.5); RDW Standard Deviation 54.6 fL (36.4-46.3); Red Blood Count 3.39 M/uL (4.7-6.1); White Blood Count 14.71 K/uL (4.8-10.8)
[2019-04-20] MEDS: LACTATED RINGER'S 1,000 ML IV SCH (08:43)
[2019-04-20] MEDS: AMLODIPINE BESYLATE 5 MG TAB PO SCH (08:44)
[2019-04-20] MEDS: INSULIN ASPART 100 UNITS/ML 3 ML PEN SC SCH ×5 (08:45→21:06)
[2019-04-20 09:04] LABS: BUN Creatinine Ratio 6.6 (10-20); Calcium 8.1 mg/dl (8.5-10.1); Creatinine Clr Calc Pharmacy 13.9 ml/min; Est GFR (African American) 12.4; Est GFR (Non-African American) 10.7
--- NOTE | 2019-04-20 10:02 | Nephrology Progress Note ---
Date of Service April 20, 2019 Assessment & Plan (1) ESRD (end stage renal disease) on dialysis: -- HD today. Orders for heparin free HD placed in EMR and HD RN notified. Will attempt 2 L UF -- Will recheck PRP in am (2) Anemia: -- Will provide JOSH w/ HD (3) Penile malignant neoplasm: -- Penectomy 04/18/19 Subjective Mr. Mahoney was seen & examined in preparation for HD this morning. He complains of discomfort at his surgical incision and expresses concern regarding post hospital care / need for home troy RN care Review of Systems Constitutional: no fever Respiratory: no dyspnea Cardiovascular: no chest pain Gastrointestinal: no vomiting and no diarrhea/loose stools Genitourinary: + genital pain (related to surgery) Neurologic: no confusion Physical Exam Constitutional: + frail appearing Eyes: PERRL Neck: trachea midline, no thyromegaly Respiratory: normal respiratory effort, lungs clear to auscultation Cardiovascular: Rate/Rhythm: regular rate and regular rhythm Gastrointestinal (Abdomen): normal bowel sounds, soft, nontender, no hepatosplenomegaly Skin: no rashes, warm and dry (no edema) Neurologic: not confused Results & Data Vital Signs (Past 12 Hours) Vital Signs Temp Pulse Pulse Pulse Resp BP BP 04/20/19 09:40 64 129/71 04/20/19 07:25 36.4 C L 60 18 124/60 04/20/19 00:09 36.7 C 68 18 132/77 Pulse Ox 04/20/19 09:40 04/20/19 07:25 92 04/20/19 00:09 93 Laboratory Tests 04/20/19 07:56 WBC 14.71 H Hgb 9.0 L Hct 29.5 L Plt Count 272
[2019-04-20] MEDS: DOCUSATE SODIUM 100 MG CAP PO SCH ×2 (13:59→21:39)
[2019-04-20] MEDS: HEPARIN SOD 5,000 UNIT/0.5 ML VIAL SQ SCH ×2 (13:59→21:39)
[2019-04-20] MEDS: cefUROXime axetil 500 MG TAB PO SCH ×2 (13:59→21:39)
[2019-04-20] MEDS: SULFA/TRIMETH 400/80MG TAB PO SCH ×2 (13:59→21:39)
[2019-04-20] MEDS: FAMOTIDINE 20 MG in SYRINGE 3 ML IV SCH ×2 (13:59→21:39)
--- NOTE | 2019-04-20 15:50 | Urology Progress Note ---
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 Appears to be progressing appropriately. Case management consult placed yesterday - awaiting assistance for discharge home nursing vs. rehab. Continue pain control and empiric antibiotics. Attending Note: Patient seen and evaluated by myself. Patient pathology reviewed at length. 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 Patient needs assistance at home with wound care. Patient otherwise resting comfortably. Will plan to monitor and continue supportive care. Subjective 73 YO male POD #2 s/p radical penectomy. Reports feeling well this afternoon. Dialysis this AM. Tolerating diet. Has moved bowels. Pain decently controlled with oral medication. Review of Systems Review of Systems: All systems reviewed & are unremarkable except as noted in HPI & below Physical Exam Physical Exam: NAD. Resp effort normal. No JVD. Abd soft/nontender. Gu: bladder nontender, nondistended. Hunter in place draining clear yellow urine. Dressing not removed upon my exam today. Results & Data Vital Signs (Past 12 Hours) Vital Signs Temp Pulse Pulse Pulse Pulse Resp BP 04/20/19 15:24 36.3 C L 71 18 04/20/19 13:26 36.5 C 66 04/20/19 13:00 63 133/72 04/20/19 12:45 62 125/64 04/20/19 12:30 62 129/68 04/20/19 12:15 64 119/62 04/20/19 12:00 79 100/56 L 04/20/19 11:45 65 147/78 H 04/20/19 11:30 64 114/68 04/20/19 11:15 60 116/56 L 04/20/19 11:00 61 114/67 04/20/19 10:45 63 112/72 04/20/19 10:30 62 128/65 04/20/19 10:15 63 119/73 04/20/19 10:00 63 129/71 04/20/19 09:40 64 129/71 04/20/19 09:30 36.4 C L 65 04/20/19 07:25 36.4 C L 60 18 BP Pulse Ox 04/20/19 15:24 125/64 96 04/20/19 13:26 124/63 04/20/19 13:00 04/20/19 12:45 04/20/19 12:30 04/20/19 12:15 04/20/19 12:00 04/20/19 11:45 04/20/19 11:30 04/20/19 11:15 04/20/19 11:00 04/20/19 10:45 04/20/19 10:30 04/20/19 10:15 04/20/19 10:00 04/20/19 09:40 04/20/19 09:30 04/20/19 07:25 124/60 92
[2019-04-20] MEDS: PRAVASTATIN SOD 20 MG TAB PO SCH (21:39)
[2019-04-20 23:41] LABS: Hepatitis B Surface Antibody Immune
[2019-04-21] MEDS: LACTATED RINGER'S 1,000 ML IV SCH (05:23)
[2019-04-21 08:17] LABS: Basophils # (auto) 0.06 K/uL (0-0.2); Basophils % (auto) 0.5 %; Eosinophils % (auto) 2.6 %; Hematocrit (blood only) 31.5 % (42-52); Hemoglobin 9.6 g/dL (14.0-18.0); Immature Granulocytes # (auto) 0.34 K/uL (0.00-0.02); Immature Granulocytes % (auto) 2.9 %; Lymphocytes # (auto) 2.33 K/uL (1.2-3.4); Lymphocytes % (auto) 19.9 %; Mean Corpuscular Hgb Conc 30.5 g/dL (32-36); Mean Corpuscular Volume 87.5 fL (80-100); Mean Platelet Volume 8.4 fL (7.4-10.4); Monocytes # (auto) 0.85 K/uL (0.11-0.59); Monocytes % (auto) 7.3 %; Neutrophils # (auto) 7.81 K/uL (1.4-6.5); Neutrophils % (auto) 66.8 %; Platelet Count 259 K/uL (130-400); RDW Coefficient of Variation 17.4 % (11.5-14.5); RDW Standard Deviation 54.5 fL (36.4-46.3); White Blood Count 11.69 K/uL (4.8-10.8)
[2019-04-21] MEDS: DOCUSATE SODIUM 100 MG CAP PO SCH (08:48)
[2019-04-21] MEDS: cefUROXime axetil 500 MG TAB PO SCH (08:48)
[2019-04-21] MEDS: SULFA/TRIMETH 400/80MG TAB PO SCH (08:49)
[2019-04-21] MEDS: FAMOTIDINE 20 MG in SYRINGE 3 ML IV SCH (08:49)
[2019-04-21] MEDS: AMLODIPINE BESYLATE 5 MG TAB PO SCH (08:49)
[2019-04-21] MEDS: HEPARIN SOD 5,000 UNIT/0.5 ML VIAL SQ SCH (08:50)
[2019-04-21] MEDS: INSULIN ASPART 100 UNITS/ML 3 ML PEN SC SCH ×2 (08:51→13:33)
[2019-04-21 09:05] LABS: BUN Creatinine Ratio 5.7 (10-20); Creatinine Clr Calc Pharmacy 19.2 ml/min; Est GFR (African American) 17.5; Est GFR (Non-African American) 15.1; Potassium 4.4 mmol/L (3.5-5.1)
--- NOTE | 2019-04-21 09:17 | Nephrology Progress Note ---
Date of Service April 21, 2019 Assessment & Plan (1) ESRD (end stage renal disease) on dialysis: -- Volume status and electrolyte balance are acceptable at this time. -- AVF w/ + bruit -- Next HD in am (2) Anemia: -- Will provide JOSH w/ HD (3) Penile malignant neoplasm: -- Penectomy 04/18/19 Subjective Mr. Mahoney was seen & examined in his hospital room this morning. He was dialyzed yesterday without complication. He is breathing comfortably on room air. He expressed concern about post hospital care and assistance w/ dressing changes. Review of Systems Constitutional: no fever Respiratory: no dyspnea Cardiovascular: no chest pain and no palpitations Gastrointestinal: no abdominal pain, no vomiting and no diarrhea/loose stools Genitourinary: + genital pain (related to surgery) Physical Exam Constitutional: + frail appearing Eyes: PERRL Neck: trachea midline, no thyromegaly Respiratory: normal respiratory effort, lungs clear to auscultation Cardiovascular: Rate/Rhythm: regular rate and regular rhythm Gastrointestinal (Abdomen): normal bowel sounds, soft, nontender, no hepatosplenomegaly Skin: no rashes, warm and dry (no edema) Neurologic: not confused Results & Data Vital Signs (Past 12 Hours) Vital Signs Temp Pulse Pulse Resp BP Pulse Ox 04/21/19 07:06 36.7 C 73 18 150/74 H 92 04/20/19 23:38 36.2 C L 69 18 147/68 H 93 Laboratory Results Laboratory Tests 04/21/19 04/21/19 08:05 08:05 WBC 11.69 H Hgb 9.6 L Hct 31.5 L Plt Count 259 Sodium 132 L Potassium 4.4 Chloride 99 Carbon Dioxide 29 BUN 21 H Creatinine 3.74 H D Glucose 148 H
--- NOTE | 2019-04-21 13:21 | Pharmacy Report ---
PHA: Glycemic Control AP - Date of Service April 21, 2019 - Assessment & Plan The patient is currently receiving 22 units of insulin per day. BSGs ranging 107-168 mg/dl over the past 24hrs. * Correctional Insulin: Novolog Correction per scale ACHS Goal Range: Low 120 mg/dL - High 160 mg/dL Correction Factor: 25 mg/dL/unit * Prandial insulin: Per carb ratio of 1 unit per 9 grams CHO consumed BSGs continue to be within goal ranges, no changes needed to inpatient regimen at this time. Pharmacy will continue to monitor patient daily and write orders per [facility] inpatient glycemic control protocol. Thanks. * Please note that the plan above was derived based on current level of insulin resistance and hospital stress. These recommendations are appropriate for inpatient admission only. Plan of care upon discharge will need to be reassessed to avoid potential outpatient hypo/hyperglycemia.
[2019-04-21] MEDS ORDERED: BACITRACIN OINT 15 GM TUBE EXT SCH (14:00)
--- NOTE | 2019-04-21 15:01 | Urology Progress Note ---
Date of Service April 21, 2019 Assessment & Plan (1) Penile malignant neoplasm: POD#3 s/p radical penectomy. Patient feeling well, requests discharge. Home nursing has been coordinated for daily checks of urostomy and incision care. D/c surgical dressing and shower today. Maintain scrotal support with fluffs for etienne drainage. Okay for discharge if shower is tolerated. Subjective 73 YO male POD #3 s/p radical penectomy. Patient reports feeling well today. Pain well controlled. Tolerating diet. No fevers/chills. Review of Systems Review of Systems: All systems reviewed & are unremarkable except as noted in HPI & below Physical Exam Physical Exam: NAD. Resp effort normal. No JVD. Abd soft/nontender. : bladder nontender/nondistended. Hunter in urostomy draining clear yellow urine. Surgical dressing intac. +serosang drainage via etienne. Alert, cooperative. Results & Data Vital Signs (Past 12 Hours) Vital Signs Temp Pulse Resp BP Pulse Ox 04/21/ 07:06 36.7 C 73 18 150/74 H 92
[2019-04-22] MEDS ORDERED: EPOETIN ALFA 10,000 UNITS/ML VIAL IV ONE (07:00)
[2019-04-22] MEDS ORDERED: HEPARIN SOD (PORCINE) 1000 UNIT/ML 10 ML VIAL IV SCH (07:00)
[2019-04-22] MEDS ORDERED: SODIUM CHLORIDE 0.9% 1000ML 1,000 ML IV PRN (07:00)
--- NOTE | 2019-05-02 07:00 | Discharge Summary ---
Date of Service May 02, 2019 Admission HPI Per Admitting Provider Ambrosio reports he feels "okay "at time of exam. He is a poor historian. He reports he is in the hospital because he needed surgery. He is in 4/10 pain in his low groin, but feels this is "okay " He denies any fever, chills, sweats. No difficulty breathing or shortness of breath. No chest pain, chest pressure, palpitations. He feels "puffy "like he needs dialysis. He reports he gets dialysis Thursday for "a long time ". He denies lightheadedness, dizziness, or feeling like he is going to pass out. No other questions or concerns at time of visit. Medications: He is not able to name his prior to admission medications. He reports that he "checked my list "when they came in and they should be accurate SHX: History of CABG x3 in 2011, L AV Fistula formation MedHx: T2DM, HLD, HTN, penile cancer, CKD on HD FHX: DM in his parents, HTN in his parents. Social: Lives alone in [facility] Occasional beer/liquor use Uses dip tobacco Code Status: Full Code. Confirmed with pt. Admission Exam Per Admitting Provider See Admission H&P Principal Diagnosis Penile Cancer Discharge Exam Constitutional WD/WN, vitals as above + frail appearing Eyes PERRL, conjunctivae normal, anicteric sclerae PERRL ENMT external ear and nose normal, oropharynx normal Mouth: + poor dentition, + chipped teeth (MANY) and + small oral opening; no TMJ abnormality, no dental restorations and no loose teeth Mallampati Class: IV Neck trachea midline, no thyromegaly normal visual inspection and + limited neck extension Respiratory normal respiratory effort; no respiratory distress and no labored breathing Cardiovascular Rate/Rhythm: not tachycardic Extremities: no edema Gastrointestinal (Abdomen) normal bowel sounds, soft, nontender, no hepatosplenomegaly Musculoskeletal Extremities: extremities normal to inspection; no cyanosis and no clubbing Skin no rashes, warm and dry (no edema) Neurologic moves all extremities and awake; no focal motor deficits and not confused Psychiatric A+Ox3, euthymic affect Orientation: alert and oriented x 3 Genitourinary Perineal Urethrostomy PPP with العلي in place. Wound clean and dry and intact Discharge Data Allergies Allergy/AdvReac Type Severity Reaction Status Date / Time No Known Allergies Allergy Verified 04/18/19 06:41 Consultations 04/18/19 10:13 Consult Nephrology Routine 04/18/19 16:31 Consult Hospitalist Routine 04/19/19 14:36 Consult Case Management - Discharge Planning Routine Procedures Performed Operation Date: 04/18/19 11:20 Actual Procedures p Radical Penectomy, Perineal Urethrotomy(Not Applicable) - Jamir Nicholson II, DO Hospital Course (1) Penile malignant neoplasm: POD#3 s/p radical penectomy. Patient feeling well, requests discharge. Home nursing has been coordinated for daily checks of urostomy and incision care. D/c surgical dressing and shower today. Maintain scrotal support with fluffs for etienne drainage. Okay for discharge if shower is tolerated. Total Time Total Time Spent Total Time Spent (In Minutes): 15 Total Time Includes: Examination of the Patient, Discharge Planning, Medication Reconciliation, Communication With Other Providers and Other Discharge Plan Discharge Items Patient Disposition: Home - Home Health Services Reason For Visit: Penile Cancer Discharge Diagnosis: Same Discharge Goals: Decrease discomfort and Improve function Activity: Resume your previous activity Lifting: No more than 50 pounds Bathing Comment: No baths or soaking or hot tubs. Okay to shower in 24 hours. Exercise/Sports: Wait until after follow-up appointment Non-emergency contact: Urologist Call non-emergency contact if: you have any medication questions, your symptoms worsen, your pain is not controlled, your pain is worsening, your pain is unusual for you, your pain is concerning for you, you have a fever, your temperature is above 101.5, your wound has increased redness, your wound has increased drainage and your wound pain has increased Follow-up/Referrals: PCP,NO [Primary Care Provider] - Diet: Carb Consistent or DM2 Addtl Provider Instructions: Keep area clean. Okay to wash with warm soapy water 2-3 x daily. Okay to shower. Bandage as needed. Call if any concerns or issues [phone]. Catheter to stay in place until followup. Call if any issues. Continue with regularly scheduled dialysis. Keep your follow up appointment with Dr. Nicholson as scheduled on 05/03/19 @ 1:50pm. This is at the [address] [place] [address] office in [place]. Finish all prescriptions as written. Take pain medication as needed, you can also take Tylenol as needed. Prescriptions: New oxycodone 5 mg tablet 5 mg PO Q6H PRN (Reason: pain) Qty: 14 RF: 0 sulfamethoxazole-trimethoprim [Bactrim] 400-80 mg tablet 1 tab PO Q12H Qty: 20 RF: 0 docusate sodium [Colace] 100 mg capsule 100 mg PO BID Qty: 60 RF: 0 Continued furosemide 40 mg Tablet 40 mg PO QAM RF: 0 glipizide 10 mg Tablet 10 mg PO QAM RF: 0 amlodipine 5 mg Tablet 5 mg PO DAILY RF: 0 pravastatin 20 mg Tablet 20 mg PO HS RF: 0 hydroxyzine HCl 10 mg Tablet 10 mg PO Q6H PRN (Reason: Itching) RF: 0 calcium acetate 667 mg Capsule 1,334 mg PO AC RF: 0 cholecalciferol (vitamin D3) [Vitamin D3] 2,000 unit Capsule 2,000 unit PO DAILY RF: 0 Dialyvite 800 with Zinc 15 0.8-15 mg Tablet 1 tab PO DAILY RF: 0 Discontinued ciprofloxacin HCl 250 mg Tablet 250 mg PO Q12H RF: 0 sulfamethoxazole-trimethoprim [Bactrim DS] 800-160 mg Tablet 1 tab PO Q12H RF: 0 tamsulosin 0.4 mg Capsule 0.4 mg PO DAILY RF: 0 aspirin [Aspirin Low Dose] 81 mg Tablet,Delayed Release (Dr/Ec) 81 mg PO DAILY RF: 0 Stand-Alone Forms: Clew, Opioid Pain Management Krames/Other Patient Handouts: Catheter Bag Urinary Empty Clean, Leg Bag Care Dc Discharge Orders: Discharge Order (Routine); Ordered 04/21/19 Ordered By: Esthela Marshall Admission Data Admit Date/Time: 04/18/19 15:14 Attending Provider: Jamir Nicholson II Admit Provider: Jamir Nicholson II Primary Care Provider: PCP,NO Other Providers: Jamir Perera ; Saeed Patel Service: Surgical Services Other Interventions: Discharge Summary Assessment (RN) Last Done: 04/21/19 16:29 DC Date/Time DO NOT enter until pt leaves facility: 04/21/19 17:40
== END 2019-04-21 17:40 | disposition home health service (06) | DRG 709 ==
LOC: ASU 06:01 → 3W 15:14